=== PATIENT | female | born 1955 | race Caucasian/White ===

== ENCOUNTER 2018-02-10 07:02 | Inpatient (IN) | payer MEDICARE ==
[~2018-02-10] VITALS: Ht 170.2 cm; Wt 105.5 kg
[2018-02-10] MEDS ORDERED: KEFLEX500 MG PO (08:41)
[2018-02-10] MEDS ORDERED: HYDROCO/APAP TAB 10- (08:43)
[2018-02-10] MEDS ORDERED: ULTRAM50 MG PO (08:43)
[2018-02-10] MEDS ORDERED: HYDROCO/APAP TAB 10- PO ×2 (08:45→08:54)
[2018-02-10] MEDS ORDERED: LISINOPRIL10 MG PO (08:46)
[2018-02-10] MEDS ORDERED: ZIAC 5-6.25 MG1 TAB PO (08:46)
[2018-02-10] MEDS ORDERED: NEURONTIN 300300 MG PO (08:47)
[2018-02-10] MEDS ORDERED: GLUCOPHAGE1000 MG PO (08:48)
[2018-02-10] MEDS ORDERED: PROTONIX20 MG PO (08:48)
[2018-02-10] MEDS ORDERED: JANUVIA100 MG PO (08:49)
[2018-02-10] MEDS ORDERED: ACTOS30 MG PO (08:50)
[2018-02-10] MEDS ORDERED: SOMA350 MG PO (08:51)
[2018-02-10] MEDS ORDERED: JARDIANCE10 MG PO (08:52)
[2018-02-10] MEDS ORDERED: LEXAPRO20 MG PO (08:52)
[2018-02-10] MEDS ORDERED: GLIMEPIRIDE4 MG PO (08:53)
[2018-02-10 08:59] LABS: APPEARANCE CLOUDY (CLEAR); BILIRUBIN NEGATIVE (NEGATIVE); COLOR YELLOW (YELLOW); GLUCOSE 1000 mg/dL (NEGATIVE); KETONE NEGATIVE (NEGATIVE); NITRITE NEGATIVE (NEGATIVE); PROTEIN NEGATIVE (NEGATIVE); SPECIFIC GRAVITY 1.015 (1.005-1.020); UROBILINOGEN NORMAL (NORMAL); WHITE CELLS - URINE >50 /hpf (0-5)
[2018-02-10 09:00] LABS: BACTERIA FEW /hpf (NONE SEEN); EPITHELIAL CELLS OCC /hpf (0-5); RED CELLS - URINE OCC /hpf (0-5)
[2018-02-10 09:13] VITALS: BP 111/59; BMI 36.4
[2018-02-10 16:43] LABS: HEMOGLOBIN 10.4 g/dL (12-16); RDW 17.4 % (11.5-14.5)
[2018-02-10 16:59] LABS: APTT 27.6 SECONDS (22.8-39.4); INR 1.01 (0.85-1.17); PROTIME 12.9 SECONDS (11.6-15.0)
[2018-02-10 17:00] LABS: BASOPHILS 0.7 % (0-2); EOSINOPHILS 2.2 % (0-7); HEMATOCRIT 33.8 % (36.0-48.0); IMMATURE GRANULOCYTES 0.5 % (0-5); LYMPHOCYTES 26.3 % (15-50); MCH 22.5 pg (26.0-34.0); MCHC 30.8 g/dL (31.0-37.0); MEAN PLATELET VOLUME 10.6 fL (7.4-10.4); MONOCYTES 7.9 % (2-11); NEUTROPHILS 62.4 % (40-80); PLATELET COUNT 230 10x3/uL (130-400); RBC 4.63 10x6/uL (4.00-5.40); WBC 10.1 10x3/uL (4.8-10.8)
[2018-02-10 17:08] LABS: ALBUMIN 3.3 g/dL (3.4-5.0); ANION GAP 8.9 mmol/L (8-16); BILIRUBIN - TOTAL 0.34 mg/dL (0.2-1.3); CALCIUM 8.8 mg/dL (8.5-10.1); CARBON DIOXIDE 32.6 mmol/L (21.0-32.0); CREATININE - SERUM 1.1 mg/dL (0.6-1.3); MAGNESIUM - SERUM 1.9 mg/dL (1.8-2.4); POTASSIUM - SERUM 3.5 mmol/L (3.5-5.1); PROTEIN - SERUM 7.7 g/dL (6.4-8.2)
[2018-02-10 20:00] VITALS: BP 105/49; BP 161/59
[2018-02-10 20:43] VITALS: Ht 170.2 cm; Wt 105.5 kg
[2018-02-11 04:00] VITALS: BP 106/49
[2018-02-11 04:29] LABS: BASOPHILS 0.5 % (0-2); EOSINOPHILS 2.6 % (0-7); HEMATOCRIT 33.7 % (36.0-48.0); HEMOGLOBIN 10.4 g/dL (12-16); IMMATURE GRANULOCYTES 0.5 % (0-5); LYMPHOCYTES 29.2 % (15-50); MCH 22.8 pg (26.0-34.0); MCHC 30.9 g/dL (31.0-37.0); MCV 73.7 fL (80.0-100.0); MEAN PLATELET VOLUME 10.8 fL (7.4-10.4); MONOCYTES 7.1 % (2-11); NEUTROPHILS 60.1 % (40-80); PLATELET COUNT 238 10x3/uL (130-400); RBC 4.57 10x6/uL (4.00-5.40); RDW 17.4 % (11.5-14.5); WBC 9.3 10x3/uL (4.8-10.8)
[2018-02-11 04:45] LABS: CALCIUM 8.6 mg/dL (8.5-10.1); CARBON DIOXIDE 31.7 mmol/L (21.0-32.0); POTASSIUM - SERUM 3.7 mmol/L (3.5-5.1)
[2018-02-11 08:17] VITALS: BP 134/53
[2018-02-11 20:00] VITALS: BP 119/62
[2018-02-12] VITALS (11 sets, daily range): BP systolic 114–146; BP diastolic 45–80
[2018-02-12 04:37] LABS: BASOPHILS 0.8 % (0-2); EOSINOPHILS 2.1 % (0-7); HEMATOCRIT 33.3 % (36.0-48.0); IMMATURE GRANULOCYTES 0.6 % (0-5); LYMPHOCYTES 28.4 % (15-50); MCH 22.3 pg (26.0-34.0); MCV 74.3 fL (80.0-100.0); MEAN PLATELET VOLUME 10.1 fL (7.4-10.4); MONOCYTES 7.7 % (2-11); NEUTROPHILS 60.4 % (40-80); PLATELET COUNT 225 10x3/uL (130-400); RBC 4.48 10x6/uL (4.00-5.40); RDW 17.3 % (11.5-14.5); WBC 9.3 10x3/uL (4.8-10.8)
[2018-02-12 05:01] LABS: CALCIUM 8.6 mg/dL (8.5-10.1); CARBON DIOXIDE 30.7 mmol/L (21.0-32.0); CREATININE - SERUM 1.2 mg/dL (0.6-1.3); POTASSIUM - SERUM 3.7 mmol/L (3.5-5.1)
[2018-02-13] VITALS: BP 111/45; BP 122/55
[2018-02-13 00:30] VITALS: BP 119/64
[2018-02-13 04:00] VITALS: BP 134/47
[2018-02-13 06:34] LABS: BASOPHILS 0.5 % (0-2); EOSINOPHILS 1.1 % (0-7); HEMATOCRIT 32.1 % (36.0-48.0); HEMOGLOBIN 9.7 g/dL (12-16); IMMATURE GRANULOCYTES 0.5 % (0-5); LYMPHOCYTES 17.7 % (15-50); MCH 22.4 pg (26.0-34.0); MCHC 30.2 g/dL (31.0-37.0); MCV 74.1 fL (80.0-100.0); MEAN PLATELET VOLUME 10.8 fL (7.4-10.4); MONOCYTES 6.3 % (2-11); NEUTROPHILS 73.9 % (40-80); PLATELET COUNT 232 10x3/uL (130-400); RBC 4.33 10x6/uL (4.00-5.40); RDW 17.4 % (11.5-14.5); WBC 11.4 10x3/uL (4.8-10.8)
[2018-02-13 06:46] LABS: ANION GAP 8.7 mmol/L (8-16); CALCIUM 8.2 mg/dL (8.5-10.1); CARBON DIOXIDE 29.3 mmol/L (21.0-32.0)
[2018-02-13 08:32] VITALS: BP 125/54
== END 2018-02-13 15:40 | disposition home health service (06) | DRG 982 ==
LOC: D.MS 07:02 → D.OPS 07:02 → D.PAN 08:45 → D.MS 15:17 → D.OPS 15:18 → D.MS 15:18
PROVIDERS: Internal Medicine Nephrology; Orthopaedic Surgery
PROC: 0QSJ04Z Reposition Right Fibula with Internal Fixation Device, Open Approach (ICD-10-PCS; principal; 2018-02-12 13:30)
DX: N39.0 Urinary tract infection, site not specified (principal); F17.213 Nicotine dependence, cigarettes, with withdrawal; I10 Essential (primary) hypertension; E11.9 Type 2 diabetes mellitus without complications; M79.7 Fibromyalgia; K21.9 Gastro-esophageal reflux disease without esophagitis; F32.9 Major depressive disorder, single episode, unspecified; D64.9 Anemia, unspecified; S82.491A Other fracture of shaft of right fibula, initial encounter for closed fracture; X50.1XXA Overexertion from prolonged static or awkward postures, initial encounter